=== PATIENT | female | born 1980 | race Caucasian/White ===

== ENCOUNTER 2018-04-27 18:43 | Inpatient (IN) ==
[2018-04-27 14:32] LABS: Amphetamine Screen,Urine Negative ng/mL (Cutoff=1000); Barbiturate Screen,Urine Negative ng/mL (Cutoff=200); Benzodiazepines Screen,Urine Negative ng/mL (Cutoff=200); Cannabinoid Screen,Urine Negative ng/mL (Cutoff = 50); Cocaine Screen,Urine Negative ng/mL (Cutoff= 300); Opiate Screen,Urine Negative ng/mL (Cutoff=300); Phencyclidine Screen,Urine Negative ng/mL (Cutoff=25)
[2018-04-27 14:56] LABS: Bilirubin,Urine Negative (Negative); Blood,Urine Trace (Negative); Clarity,Urine Clear (Clear); Color,Urine Yellow (Yellow); Glucose,Urine (UA) Normal (Normal); Ketones,Urine 40 mg/dL (Negative); Leukocyte Esterase,Urine Negative (Negative); Nitrite,Urine Negative (Negative); Protein,Urine Negative (Neg-Trace); Specific Gravity,Urine 1.008 (1.010-1.025); Urobilinogen,Urine Normal (Normal)
[2018-04-27 15:00] LABS: Bacteria,Urine None Seen per hpf (None-Few); Hyaline Casts,Urine None Seen per lpf (None-Few); RBC,Urine 0-3 per hpf (0-3); Squamous Epithelial Cell,Urine Many per lpf (None-Few); WBC,Urine 0-3 per hpf (0-3)
--- NOTE | 2018-04-27 16:10 | OB/GYN Progress Note ---
Date of Encounter: 04/27/18 Time of Encounter: 16:04 - Assessment and Plan (1) 37 weeks gestation of Current Visit: Yes Status: Acute FHR 160 Catgory 1 Irregular ctxs per toco Urinalysis negative for UTI/dehydration Serial cervical exams Subjective - Subjective Interval history: at 37 weeks and 0 days gestation presents to labor and delivery with complaints rectal pressure, back ache, and nausea that started at 1300 today. Denies vaginal bleeding, loss of fluid, CLARKE, visual disturbance and epigastric pain. States has felt some mild contractions since she arrived. Ths has been complicated by Insulin dependent GDM, AMA, and proteinuria. She states her blood sugars have been WNL. Reports good movement. Antepartum ROS: new complaints, movement normal Objective - Vital Signs Vital Signs: Intake and Output 04/27/18 04/27/18 04/27/18 07:59 15:59 23:59 Other: Weight 120.656 kg Patient Weight 04/27/18 23:59 Weight 120.656 kg - Exam FHR: category 1 FHR comments: FHR 160 Category 1 Auscultation: bilateral: normal Abdomen: Present: normal appearance, soft, gravid. Absent: tenderness Uterus: Present: normal. Absent: tenderness Cervical dilation: 4 Cervix effacement: 50 station: -3 Comments: VE per RN - Labs Labs: Abnormal lab results Ur Specific [place] 1.008 (1.010-1.025) L 04/27/18 14:38 Urine Ketones 40 mg/dL (Negative) H 04/27/18 14:38 Urine Blood Trace (Negative) H 04/27/18 14:38 Ur Squamous Epith Cells Many per lpf (None-Few) H 04/27/18 14:38
[~2018-04-27 18:43] MED LIST: *HR* Dextrose 50 % in Water (Syg) 50 ML SYRINGE IVP PRN; *HR* Nalbuphine 10 MG/ML AMPUL IVP PRN; D5% in Water 1,000 ML IVC PRN; Dextrose Gel 15 GM/37.5 ML TUBE PO PRN; Famotidine 20 MG/2 ML VIAL IVP PRN; Naloxone 0.4 MG/ML INJ IVP PRN; Ondansetron 4 MG/2 ML VIAL IVP PRN; Penicillin G Potassium 5,000,000 UNIT in 0.9 % Sodium Chloride Mini Bag 100 ML IVPB ONE
[2018-04-27] MEDS ORDERED: D5% in Lactated Ringers 1,000 ML IVC SCH (18:45)
[2018-04-27] MEDS ORDERED: 0.9 % Sodium Chloride 1,000 ML ONE (18:47)
[2018-04-27 18:53] LABS: Eosinophils % 0.1 %
[2018-04-27 18:55] LABS: Basophils % 0.2 %; Hematocrit 32.2 % (35.3-44.9); Immature Granulocytes % 0.4 % (0-4); Immature Platelets 1.9 % (1.1-6.1); Lymphocytes # 0.5 K/mcL (0.6-4.6); Lymphocytes % 4.1 %; Mean Corpuscular HGB Conc 34.2 g/dL (31.6-35.5); Mean Corpuscular Hemoglobin 28.9 pg (28.0-33.3); Mean Corpuscular Volume 84.7 fL (83.0-100.0); Mean Platelet Volume 9.5 fL (9.4-12.4); Monocytes # 0.7 K/mcL (0.0-1.3); Monocytes % 6.4 %; Red Cell Distribution Width 13.3 % (11.5-14.5); Segmented Neutrophils % 88.8 %
[2018-04-27 18:56] LABS: Platelet Count 92 K/mcL (140-400)
[2018-04-27] MEDS ORDERED: D5% in 0.45% NACL 1,000 ML IVC SCH (19:00)
--- NOTE | 2018-04-27 19:06 | OB/GYN History & Physical ---
Date of Encounter: 04/27/18 Time of Encounter: 19:03 Assessment and Plan (1) 37 weeks gestation of Current visit: Yes Status: Acute Admit to Labor and delivery for cervical change and intermittent tachycardia GBS positive Insulin dependent GDM Nubain/Epidural per patient request Anticipate POC per consult Dr. Whittaker (2) Gestational diabetes Current visit: Yes Status: Acute Qualifiers: Gestational diabetes mellitus control: insulin-controlled Trimester: third trimester Qualified Code(s): O24.414 - Gestational diabetes mellitus in , insulin controlled (3) tachycardia Current visit: Yes Status: Acute History of Present Illness HPI: at 37 weeks and 0 days gestation presents to triage with complaints rectal pressure, back ache, and nausea that started at 1300 today. Denies vaginal bleeding, loss of fluid, CLARKE, visual disturbance and epigastric pain. States has felt some mild contractions since she arrived. Reports good movement. This has been complicated by Insulin dependent GDM, AMA, and proteinuria. She states her blood sugars have been WNL. First complicated by Pre eclampsia. Pregnancies #2 through #8 were full term, uncomplicated . PMH and unremarkable. While in triage, she made cervical change and had intermittent episodes of tachycardia. Discussed with Dr. Whittaker, decision made to admit for augmentation of labor. POC discussed with patient, she is agreeable to POC. Labs: AB positive GBS positive Hep B negative RPR non reactive Rubella immune Past Med Surg Social Fam HX - Past Medical History Medical history: DVT Additional medical history: PT IS 29 WEEKS PREG, HERE FOR POSSIBLE BLOOD CLOT Psychiatric history: no psych history - Past Surgical History Surgical History: no surgical history - Social History Smoking Status: Never smoker Smokeless Tobacco Status: No Alcohol use: none Drug use: none - Family History Mother Living Status: Still Living Hx Family Cardiac Disorders: Yes Hx Family Respiratory Disorders: No Hx Family Cancer: Yes Hx Family GI Disorders: No Hx Family Genitourinary Disorders: No Hx Family Endocrine Disorder: No Hx Family Musculoskeletal Disorders: No Hx Family Neuromuscular Disorders: No Hx Family Neurologic Disorders: No Hx Family HEENT Disorders: No Hx Family Autoimmune Disorders: No Hx Family Reproductive Disorders: No Hx Family Psychosocial Disorders: No Hx Family Medical Disorders: No Obstetrical History - Pregnancies : 10 Para: 9 Term: 9 : 0 Ab's: 0 Livin - History/Complications History/Complications: First complicated by Pre eclampsia. Current complicated with Insulin dependent GDM. Pregnancies 32-38 fullterm, uncomplicated . Medications and Allergies Insulin LISPRO [Humalog] 30 unit SQ DAILY 04/27/18 [History] 3 Allergy/AdvReac Type Severity Reaction Status Date / Time No Known Allergies Allergy Verified 04/27/18 13:48 Exam - Constitutional Constitutional: well developed, well nourished, no acute distress - HEENT HEENT: Normocephaly, Mucus Membranes Moist - Neck Neck exam: full ROM - Lungs Respiratory exam: CTAB - Cardiovascular Cardiovascular exam: RRR - Abdomen Abdomen: Present: bowel sounds normal - Extremities Extremities exam: full ROM, normal inspection, pedal edema, radial pulses palpable and symmetrical Deep Tendon Reflex Grade: 2+ Normal - Vulva Vulva: bilateral: normal - Vagina Vagina: Present: normal moisture - Cervix Dilation: 4 Effacement: 60 Station: -2 - Uterus Uterus exam: Present: normal size, normal contour Results Result Diagrams: 04/27/18 18:43 Abnormal lab results WBC 11.2 K/mcL (4.3-11.1) H 04/27/18 18:43 RBC 3.80 M/mcL (3.82-4.97) L 04/27/18 18:43 Hgb 11.0 g/dL (11.5-15.4) L 04/27/18 18:43 Hct 32.2 % (35.3-44.9) L 04/27/18 18:43 Plt Count 92 K/mcL (140-400) L 04/27/18 18:43 Neutrophils # 10.0 K/mcL (1.6-8.9) H 04/27/18 18:43 Lymphocytes # 0.5 K/mcL (0.6-4.6) L 04/27/18 18:43 Ur Specific [place] 1.008 (1.010-1.025) L 04/27/18 14:38 Urine Ketones 40 mg/dL (Negative) H 04/27/18 14:38 Urine Blood Trace (Negative) H 04/27/18 14:38 Ur Squamous Epith Cells Many per lpf (None-Few) H 04/27/18 14:38 All other labs normal. - VTE Reasons for not Prescribing Prophylaxis: Treatment not Indicated - Low risk for VTE
[2018-04-27] MEDS ORDERED: Acetaminophen 325 MG TABLET PO PRN (19:49)
[2018-04-27] MEDS: Insulin LISPRO 300 UNITS/3 ML VIAL SQ SCH ×2 (20:05→22:13)
[2018-04-27 21:08] LABS: Alanine Aminotransferase 15 Units/L (7-52); Aspartate Amino Transferase 14 Units/L (13-39); BUN/Creatinine Ratio 13 (6-26); Blood Urea Nitrogen 6 mg/dL (6-20); Lactate Dehydrogenase 192 Units/L (140-271); Uric Acid 5.7 mg/dL (2.3-7.6); eGFR For African Americans > 60 (> 60); eGFR For Non-African Americans > 60 (> 60)
--- NOTE | 2018-04-27 22:45 | Discharge Summary ---
Date of Encounter: 04/27/18 Time of Encounter: 22:48 - Discharge Diagnosis (1) 37 weeks gestation of Priority: Secondary Status: Acute (2) Gestational diabetes Priority: Secondary Status: Acute Comments: Glucose well controlled on NPH 30 units at bedtime prior to admission. Following admission pt was started on sliding scale insulin with D5/ 0.45 for maintenance IV per Dr. Whittaker. Qualifiers: Gestational diabetes mellitus control: insulin-controlled Trimester: third trimester Qualified Code(s): O24.414 - Gestational diabetes mellitus in , insulin controlled (3) tachycardia Priority: Secondary (tachycardia) Status: Acute Comments: Intermittent tachycardia noted (4) Tachycardia Priority: Primary Status: Acute Comments: Pulse ranging from 115-145BPM. When it reached 145 with pt at rest EKG ordered. EKG shows sinus tachycardia with possible ST depression. Troponin 0.09. Pt reports significant shortness of breath and chest pain a few weeks ago that was intermittent for several days but spontaneously resolved prior to her scheduled echocardiogram. She opted not to have the echo since her symptoms had resolved. Following the EKG this evening pt admits to intermittent shortness of breath since arrival to L&D. She denies chest pain at this time. Decision made to transfer to [facility] since maternal telemetry monitoring is not available in labor and delivery at our facility. Pt agreeable to go to [facility] but has refused ambulance transport due to cost. She has a retail personal banker that will take to directly from [place] to [facility]. Risks discussed. (5) Shortness of breath during Priority: Secondary Status: Acute - Discharge Medications Home Medications: Insulin LISPRO [Humalog] 30 unit SQ DAILY 04/27/18 [History] Allergies/Adverse Reactions: 3 Allergy/AdvReac Type Severity Reaction Status Date / Time No Known Allergies Allergy Verified 04/27/18 13:48 Data Procedures and tests throughout hospitalization: Laboratory Tests 04/27/18 04/27/18 04/27/18 13:54 14:38 15:44 WBC RBC Hgb Hct MCV MCH MCHC RDW Plt Count MPV Immature Gran % Seg Neutrophils % Lymphocytes % Monocytes % Eosinophils % Basophils % Neutrophils # Lymphocytes # Monocytes # Eosinophils # Basophils # Immature Plt Fraction BUN Creatinine Est GFR ( Amer) Est GFR (Non-Af Amer) BUN/Creatinine Ratio POC Glucose 96 Uric Acid AST ALT Lactate Dehydrogenase Troponin I Urine Color Yellow Urine Clarity Clear Urine pH 7.0 Ur Specific [place] 1.008 L Urine Protein Negative Urine Glucose (UA) Normal Urine Ketones 40 H Urine Blood Trace H Urine Nitrite Negative Urine Bilirubin Negative Urine Urobilinogen Normal Ur Leukocyte Esterase Negative Urine Microscopic RBC 0-3 Urine Microscopic WBC 0-3 Ur Squamous Epith Cells Many H Urine Bacteria None Seen Hyaline Casts None Seen Ur Culture Indicated? NO Urine Opiates Screen Negative Ur Barbiturates Screen Negative Ur Phencyclidine Scrn Negative Ur Amphetamines Screen Negative U Benzodiazepines Scrn Negative Urine Cocaine Screen Negative U Marijuana (THC) Screen Negative Ur Drug Screen Interp See Below 04/27/18 04/27/18 04/27/18 18:43 20:05 20:35 WBC 11.2 H RBC 3.80 L Hgb 11.0 L Hct 32.2 L MCV 84.7 MCH 28.9 MCHC 34.2 RDW 13.3 Plt Count 92 L MPV 9.5 Immature Gran % 0.4 Seg Neutrophils % 88.8 Lymphocytes % 4.1 Monocytes % 6.4 Eosinophils % 0.1 Basophils % 0.2 Neutrophils # 10.0 H Lymphocytes # 0.5 L Monocytes # 0.7 Eosinophils # 0.0 Basophils # 0.0 Immature Plt Fraction 1.9 BUN 6 Creatinine 0.46 L Est GFR ( Amer) > 60 Est GFR (Non-Af Amer) > 60 BUN/Creatinine Ratio 13 POC Glucose 133 H Uric Acid 5.7 AST 14 ALT 15 Lactate Dehydrogenase 192 Troponin I 0.09 H* Urine Color Urine Clarity Urine pH Ur Specific [place] Urine Protein Urine Glucose (UA) Urine Ketones Urine Blood Urine Nitrite Urine Bilirubin Urine Urobilinogen Ur Leukocyte Esterase Urine Microscopic RBC Urine Microscopic WBC Ur Squamous Epith Cells Urine Bacteria Hyaline Casts Ur Culture Indicated? Urine Opiates Screen Ur Barbiturates Screen Ur Phencyclidine Scrn Ur Amphetamines Screen U Benzodiazepines Scrn Urine Cocaine Screen U Marijuana (THC) Screen Ur Drug Screen Interp 04/27/18 04/27/18 21:25 22:13 WBC RBC Hgb Hct MCV MCH MCHC RDW Plt Count MPV Immature Gran % Seg Neutrophils % Lymphocytes % Monocytes % Eosinophils % Basophils % Neutrophils # Lymphocytes # Monocytes # Eosinophils # Basophils # Immature Plt Fraction BUN Creatinine Est GFR ( Amer) Est GFR (Non-Af Amer) BUN/Creatinine Ratio POC Glucose 118 H Uric Acid AST ALT Lactate Dehydrogenase Troponin I < 0.03 Urine Color Urine Clarity Urine pH Ur Specific [place] Urine Protein Urine Glucose (UA) Urine Ketones Urine Blood Urine Nitrite Urine Bilirubin Urine Urobilinogen Ur Leukocyte Esterase Urine Microscopic RBC Urine Microscopic WBC Ur Squamous Epith Cells Urine Bacteria Hyaline Casts Ur Culture Indicated? Urine Opiates Screen Ur Barbiturates Screen Ur Phencyclidine Scrn Ur Amphetamines Screen U Benzodiazepines Scrn Urine Cocaine Screen U Marijuana (THC) Screen Ur Drug Screen Interp Labs on day of discharge: Labs from last 24 hours 04/27/18 04/27/18 04/27/18 22:13 21:25 20:35 WBC RBC Hgb Hct MCV MCH MCHC RDW Plt Count MPV Immature Gran % Seg Neutrophils % Lymphocytes % Monocytes % Eosinophils % Basophils % Neutrophils # Lymphocytes # Monocytes # Eosinophils # Basophils # Immature Plt Fraction BUN 6 Creatinine 0.46 L Est GFR ( Amer) > 60 Est GFR (Non-Af Amer) > 60 BUN/Creatinine Ratio 13 POC Glucose 118 H Uric Acid 5.7 AST 14 ALT 15 Lactate Dehydrogenase 192 Troponin I < 0.03 0.09 H* Urine Color Urine Clarity Urine pH Ur Specific [place] Urine Protein Urine Glucose (UA) Urine Ketones Urine Blood Urine Nitrite Urine Bilirubin Urine Urobilinogen Ur Leukocyte Esterase Urine Microscopic RBC Urine Microscopic WBC Ur Squamous Epith Cells Urine Bacteria Hyaline Casts Ur Culture Indicated? Urine Opiates Screen Ur Barbiturates Screen Ur Phencyclidine Scrn Ur Amphetamines Screen U Benzodiazepines Scrn Urine Cocaine Screen U Marijuana (THC) Screen Ur Drug Screen Interp 04/27/18 04/27/18 04/27/18 20:05 18:43 15:44 WBC 11.2 H RBC 3.80 L Hgb 11.0 L Hct 32.2 L MCV 84.7 MCH 28.9 MCHC 34.2 RDW 13.3 Plt Count 92 L MPV 9.5 Immature Gran % 0.4 Seg Neutrophils % 88.8 Lymphocytes % 4.1 Monocytes % 6.4 Eosinophils % 0.1 Basophils % 0.2 Neutrophils # 10.0 H Lymphocytes # 0.5 L Monocytes # 0.7 Eosinophils # 0.0 Basophils # 0.0 Immature Plt Fraction 1.9 BUN Creatinine Est GFR ( Amer) Est GFR (Non-Af Amer) BUN/Creatinine Ratio POC Glucose 133 H 96 Uric Acid AST ALT Lactate Dehydrogenase Troponin I Urine Color Urine Clarity Urine pH Ur Specific [place] Urine Protein Urine Glucose (UA) Urine Ketones Urine Blood Urine Nitrite Urine Bilirubin Urine Urobilinogen Ur Leukocyte Esterase Urine Microscopic RBC Urine Microscopic WBC Ur Squamous Epith Cells Urine Bacteria Hyaline Casts Ur Culture Indicated? Urine Opiates Screen Ur Barbiturates Screen Ur Phencyclidine Scrn Ur Amphetamines Screen U Benzodiazepines Scrn Urine Cocaine Screen U Marijuana (THC) Screen Ur Drug Screen Interp 04/27/18 04/27/18 14:38 13:54 WBC RBC Hgb Hct MCV MCH MCHC RDW Plt Count MPV Immature Gran % Seg Neutrophils % Lymphocytes % Monocytes % Eosinophils % Basophils % Neutrophils # Lymphocytes # Monocytes # Eosinophils # Basophils # Immature Plt Fraction BUN Creatinine Est GFR ( Amer) Est GFR (Non-Af Amer) BUN/Creatinine Ratio POC Glucose Uric Acid AST ALT Lactate Dehydrogenase Troponin I Urine Color Yellow Urine Clarity Clear Urine pH 7.0 Ur Specific [place] 1.008 L Urine Protein Negative Urine Glucose (UA) Normal Urine Ketones 40 H Urine Blood Trace H Urine Nitrite Negative Urine Bilirubin Negative Urine Urobilinogen Normal Ur Leukocyte Esterase Negative Urine Microscopic RBC 0-3 Urine Microscopic WBC 0-3 Ur Squamous Epith Cells Many H Urine Bacteria None Seen Hyaline Casts None Seen Ur Culture Indicated? NO Urine Opiates Screen Negative Ur Barbiturates Screen Negative Ur Phencyclidine Scrn Negative Ur Amphetamines Screen Negative U Benzodiazepines Scrn Negative Urine Cocaine Screen Negative U Marijuana (THC) Screen Negative Ur Drug Screen Interp See Below Date of admission: 04/27/18 18:43 Primary care physician: PCP NONE Discharging clinician: Gail Reaves ([place]) Anticipated date of discharge: 04/27/18 (To [facility] L[facility]) - Patient Status Disposition: Transfer Short-Term Hosp Condition: Fair Functional capacity at discharge: independent ambulation - Discharge Instructions Follow Up With: NONE,PCP [Primary Care Provider] - Kasia Pérez DO [Partnered Physician] - Hospital Course CHIEF SOLUTION ARCHITECT Reason for admission: other (contractions, ACD at 37 weeks in grand multipara) Hospital course: 38 year-old presenting at 37w0d with initial complaint of pelvic pressure. Pt was found to be having contractions and progressed a small amount from 4cm/-3 station to 4-5cm/ -1 station. She was scheduled for IOL on 04/28 due to GDM controlled with insulin, grand multiparity, proteinuria, and AMA status. Materal tachycardia in the 115-120 BPM range with intermittent tachycardia also noted. Per consultation with Dr. Whittaker decision made to admit for delivery. Pt received PCN for GBS ppx and the plan was to AROM to augment labor once it was time for second dose. Maternal heart rate nereyda spontaneously to 140's with pt at rest and EKG was ordered. EKG with sinus tachycardia and possible ST depression as well as elevated troponin then discovered. At this time pt admits to having intermittent shortness of breath since arrival. POC discussed again with Dr. Whittaker and Dr. Almonte and decision made to transfer to [facility] for further evaluation given the need for telemetry monitoring. Pt refused transfer by ambulance but agreed to have hired fire truck driver take her straight from [place] to [facility]. Time Attestation: Total time spent providing and/or coordinating discharge services: Exam - Constitutional General appearance IM: A&O X 3, pleasant, no acute distress - Respiratory Respiratory exam: Present: CTAB - Cardiovascular Cardiovascular exam IM: Present: +S1, +S2, tachycardia - GI/Abdominal GI/Abdominal exam IM: soft - Extremities Exam Extremities exam IM: Present: normal inspection, pedal edema (mild bilaterally) - Neurological Exam Neurological exam: normal gait, oriented X3 - Other Additional findings: reflexes normal, no clonus FHT baseline 155-160, 15x15 accels, moderate variability toco: rare contractions - VTE Reasons for not Prescribing Prophylaxis: Treatment not Indicated - Low risk for VTE
[2018-04-27] MEDS ORDERED: Penicillin G Potassium 2,500,000 UNIT in 0.9 % Sodium Chloride 100 ML IVPB SCH (23:00)
[2018-04-27 23:40] LABS: Troponin I 0.09 ng/mL (< 0.04)
--- NOTE | 2018-04-28 07:18 | Electrocardiograph Report ---
[address] [place], [place] [address] Test Date: 2018-04-27 Pat Name: Meron Watters Department: 101 Room: [facility] Gender: F Medical Accounting Clerk: SCOTT : 1980 Requested By: [id number] Order Number: [id number] Reading MD: Ruben Jarquin Measurements Intervals [place] Rate: 115 P: 54 [place]: 135 QRS: 42 QRSD: 97 T: -1 QT: 309 QTc: 377 Interpretive Statements SINUS TACHYCARDIA Electronically Signed On 04-28-2018 7:16:29 EDT by Ruben Jarquin
== END 2018-04-27 23:16 | disposition short-term general hospital (02) | DRG 781 ==
LOC: 1NENULAB
PROVIDERS: ADMIT Registered Nurse; ATTEND Obstetrics & Gynecology

== ENCOUNTER 2018-04-28 10:00 | Inpatient (IN) ==
[2018-04-28] MEDS ORDERED: Naloxone 0.4 MG/ML INJ IVP PRN (18:27)
[2018-04-28] MEDS ORDERED: Famotidine 20 MG/2 ML VIAL IVP PRN (18:27)
[2018-04-28] MEDS ORDERED: Ondansetron 4 MG/2 ML VIAL IVP PRN (18:27)
[2018-04-28] MEDS ORDERED: *HR* Nalbuphine 10 MG/ML AMPUL IVP PRN (18:27)
[2018-04-28] MEDS ORDERED: Penicillin G Potassium 5,000,000 UNIT in 0.9 % Sodium Chloride Mini Bag 100 ML IVPB ONE ×2 (18:30→18:45)
[2018-04-28] MEDS ORDERED: Oxytocin 20 units/ LR 1000 mL 20 UNIT/1,000 ML BAG IVC SCH (18:30)
[2018-04-28] MEDS ORDERED: 0.9 % Sodium Chloride 1,000 ML IVC SCH (18:30)
[2018-04-28] MEDS: Penicillin G Potassium 2,500,000 UNIT in 0.9 % Sodium Chloride 100 ML IVPB SCH ×2 (18:52→23:22)
[2018-04-28 20:20] LABS: Eosinophils % 0.6 %; Immature Granulocytes % 1.4 % (0-4); Segmented Neutrophils % 75.3 %
[2018-04-28 20:22] LABS: Basophils % 0.2 %; Hematocrit 30.8 % (35.3-44.9); Hemoglobin 10.5 g/dL (11.5-15.4); Immature Platelets 1.7 % (1.1-6.1); Lymphocytes # 0.7 K/mcL (0.6-4.6); Lymphocytes % 14.2 %; Mean Corpuscular HGB Conc 34.1 g/dL (31.6-35.5); Mean Corpuscular Hemoglobin 29.2 pg (28.0-33.3); Mean Corpuscular Volume 85.8 fL (83.0-100.0); Mean Platelet Volume 9.7 fL (9.4-12.4); Monocytes # 0.4 K/mcL (0.0-1.3); Monocytes % 8.3 %; Neutrophils # 3.9 K/mcL (1.6-8.9); Red Blood Count 3.59 M/mcL (3.82-4.97); Red Cell Distribution Width 13.7 % (11.5-14.5)
[2018-04-28 20:30] LABS: Platelet Count 93 K/mcL (140-400)
--- NOTE | 2018-04-28 20:32 | OB/GYN History & Physical ---
Date of Encounter: 04/28/18 Time of Encounter: 18:30 Assessment and Plan (1) Proteinuria affecting in third trimester Current visit: Yes Status: Acute Recommendation from [facility] M[facility] to deliver due to severe proteinuria at term. (2) Grand multiparity Current visit: Yes Status: Acute Actually she is a [id number] (3) 37 weeks gestation of Current visit: No Status: Acute (4) Gestational diabetes Current visit: No Status: Acute Accucheck on admission was 127. We will continue to monitor q 2 hours. She did not get her insulin last night, and other than her fasting blood sugars she has been well controlled. She is placed on 0.9 NS as maintenance IV and we will change if she becomes hypoglycemic although I do not anticipate this for her. Qualifiers: Gestational diabetes mellitus control: insulin-controlled Trimester: third trimester Qualified Code(s): O24.414 - Gestational diabetes mellitus in , insulin controlled (5) Tachycardia Current visit: No Status: Acute She had PE workup and cardiac workup at [facility] today. Report from Dr. Gross was everything was normal and they would fax us reports. OK to deliver here today. History of Present Illness Chief complaint: induction of labor HPI: Ms. Watters is a 38 year old female G 10 p 9-0-0-9 at 37 1/7 weeks presents to labor and delivery for induction of labor due to proteinuria. She initially presented to my practice at 28 weeks from an outside inspector [employer] slugs after diagnosing gestational diabetes and new onset of proteinuria. She has been followed closely by [facility] as well. She received weekly labs and was instructed to deliver at 37 weeks unless an abnormality showed up in the labs sooner. She presented her last evening with pelvic pressure. She also had complaints of shortness of breath and was sent to [facility] for further evaluation. She had CT PE and cardiac echo which were both normal. She was felt stable to be returned to [place] for her scheduled induction of labor. [place] reports her shortness of breath has resolved. She denies any labor symptoms currently. She states she did not receive her insulin last night and admits she splurged on her way here and had a piece of apple pie. She has done well with her Metformin and NPH and finally reached a dose that did control her fasting blood glucose. Past Med Surg Social Fam HX - Past Medical History Source: patient Medical history: diabetes (gestational) Psychiatric history: no psych history - Past Surgical History Surgical History: no surgical history - Social History Smoking Status: Never smoker Smokeless Tobacco Status: No Alcohol use: none Drug use: none Current living situation: Home - Independent Activity Level: Independent ambulation - Family History Mother Age: 66 Living Status: Still Living Hx Family Cardiac Disorders: Yes Hx Family Respiratory Disorders: No Hx Family Cancer: Yes Hx Family GI Disorders: No Hx Family Endocrine Disorder: No Hx Family Neuromuscular Disorders: No Hx Family Neurologic Disorders: No Hx Family HEENT Disorders: No Hx Family Autoimmune Disorders: No Obstetrical History - Pregnancies : 10 Para: 9 Term: 9 : 0 Ab's: 0 Livin - History/Complications History/Complications: toxemia Medications and Allergies Insulin LISPRO [Humalog] 30 unit SQ DAILY 04/27/18 [History] 3 Allergy/AdvReac Type Severity Reaction Status Date / Time No Known Allergies Allergy Verified 04/27/18 13:48 Review of System OB All systems PM: reviewed and no additional remarkable complaints except as stated - Constitutional Constitutional ROS IM: fatigue, no chills, no fever(s) - Cardiovascular Cardiovascular: as per HPI Exam - Constitutional Constitutional: well developed, well nourished, no acute distress, average body habitus - HEENT HEENT: EOMI - Neck Neck exam: full ROM - Lungs Respiratory exam: CTAB - Cardiovascular Cardiovascular exam: tachycardia (regular rhythm) - Abdomen Abdomen: Present: bowel sounds normal, gravid, non tender - Cervix Dilation: 5 (per previous CNM exam) Results Abnormal lab results POC Glucose 125 mg/dL (70-99) H 04/28/18 18:38 All other labs normal. - VTE Reasons for not Prescribing Prophylaxis: Treatment not Indicated - Low risk for VTE
[2018-04-28 20:39] LABS: Amphetamine Screen,Urine Negative ng/mL (Cutoff=1000); Barbiturate Screen,Urine Negative ng/mL (Cutoff=200); Benzodiazepines Screen,Urine Negative ng/mL (Cutoff=200); Cannabinoid Screen,Urine Negative ng/mL (Cutoff = 50); Cocaine Screen,Urine Negative ng/mL (Cutoff= 300); Opiate Screen,Urine Negative ng/mL (Cutoff=300); Phencyclidine Screen,Urine Negative ng/mL (Cutoff=25)
[2018-04-28] MEDS ORDERED: Acetaminophen 325 MG TABLET PO ONE (21:23)
--- NOTE | 2018-04-28 23:32 | OB Labor Progress Note ---
Date of Encounter: 04/28/18 Time of Encounter: 23:28 Labor Progress Note - Subjective Subjective: Pt comfortable at this time - Cervix Cervix: 5/50/-2 - Heart Tones Heart Tones: 140/moderate/+accels/-decels - [place]: no contractions noted - Interventions Interventions: AROM for small amount of clear fluid - Plan Plan: Expectant management at this time If no labor in 6 hours will start pitocin unless patient wants it started earlier q2 glucose checks frequent repositioning nubain and epidural as desires anticipate
[2018-04-29] MEDS: Penicillin G Potassium 2,500,000 UNIT in 0.9 % Sodium Chloride 100 ML IVPB SCH ×4 (03:19→16:00)
--- NOTE | 2018-04-29 11:15 | OB Labor Progress Note ---
Date of Encounter: 04/29/18 Time of Encounter: 11:13 Labor Progress Note - Subjective Subjective: Patient sitting in chair, doing well. Patient denies any pain at this time. - Heart Tones Heart Tones: patient currently off the monitor at this time for repositioning. - [place]: 2-4 min apart - Interventions Interventions: Discussed POC with patient. Patient denies any questions or concerns. - Plan Plan: Continue labor management. anticipate
--- NOTE | 2018-04-29 13:42 | OB Labor Progress Note ---
Date of Encounter: 04/29/18 Time of Encounter: 13:39 Labor Progress Note - Subjective Subjective: Patient sitting in bed. Patient asking to be checked. - Cervix Cervix: 5.5/90/-1 - Heart Tones Heart Tones: 125 bpm moderate amount of variability +15x15 accels no decels noted. Cat. 1 tracing. - [place]: 2-2.5 min apart - Interventions Interventions: SVE, discussed POC - Plan Plan: Continue labor management.
[2018-04-29] MEDS ORDERED: Ibuprofen 600 MG TABLET PO PRN ×2 (18:21→20:55)
--- NOTE | 2018-04-29 18:45 | OB/GYN Procedure Note ---
Delivery - Delivery Date: 04/29/18 Provider: Holly Domingo Intrapartum events: none Delivery induction: AROM, oxytocin Delivery monitor: external FHT, external uterine Anesthesia: none Quantitated Blood Loss: 200 - (s) A Delivery Date: 04/29/18 Delivery Time: 18:12 Presentation: vertex Position: RENEE Route of delivery: Gender: Male Viability: Viable Pounds: 7 Ounces: 7 Weight Gram: 3370 kg at 1 minute: 8 at 5 mins: 8 Shoulder Dystocia: not encountered Placenta: spontaneous, uterine exploration Cord: 3 umbilical vessels - Repair Episiotomy: none Laceration Description: None - Complications Delivery complications: uterine atony (resolved uterine massage and pitocin ) - Disposition Mom disposition: stable in LDR disposition: stable in LDR - Comments Comments: Called to LDR patient feeling the urge to push. Patient progressed to complete and under maternal effort patient spontaneously delivered a viable male over an intact perineum. No nuchal cord, shoulder dystocia or meconium was encountered. Infant was placed on maternal abdomen. Cord was clamped and cut after pulsations ceased. Placenta delivered spontaneously and intact. Uterus was explored. Pericare provided. All counts correct. Both mother and infant stable in LDR for 2 hour recovery.
[2018-04-29] MEDS ORDERED: *HR* HYDROcodone/Acet 5/325 mg TABLET PO PRN (20:55)
[2018-04-29] MEDS ORDERED: Oxytocin 20 units/ LR 1000 mL 20 UNIT/1,000 ML BAG IVC SCH (20:55)
[2018-04-29] MEDS ORDERED: Acetaminophen 325 MG TABLET PO PRN (20:55)
[2018-04-29] MEDS ORDERED: Measles/Mumps/Rubella Vacc 0.5 ML VIAL SQ PRN (20:55)
[2018-04-30 08:32] VITALS: BP 105/71
[2018-04-30] MEDS ORDERED: Prenatal Vit/FA 1 EACH TABLET PO SCH (09:00)
--- NOTE | 2018-04-30 09:49 | Discharge Summary ---
Date of Encounter: 04/30/18 Time of Encounter: 09:47 - Discharge Diagnosis (1) Vaginal delivery Priority: Primary Status: Acute Comments: Stable PPD#1, Pain well managed, bleeding minimal, , desires discharge. - Discharge Medications Home Medications: Acetaminophen [Tylenol] 650 mg PO Q6HR PRN tablet 04/30/18 [Rx] Docusate [Colace] 100 mg PO BID capsule 04/30/18 [Rx] Ibuprofen [Motrin] 600 mg PO Q6HR PRN tablet 04/30/18 [Rx] Vit/FA 1 each PO DAILY tablet 04/30/18 [Rx] Allergies/Adverse Reactions: 3 Allergy/AdvReac Type Severity Reaction Status Date / Time No Known Allergies Allergy Verified 04/27/18 13:48 Data Procedures and tests throughout hospitalization: Laboratory Tests 04/28/18 04/28/18 04/28/18 17:45 18:38 19:49 WBC 5.2 D RBC 3.59 L Hgb 10.5 L Hct 30.8 L MCV 85.8 MCH 29.2 MCHC 34.1 RDW 13.7 Plt Count 93 L MPV 9.7 Immature Gran % 1.4 Seg Neutrophils % 75.3 Lymphocytes % 14.2 Monocytes % 8.3 Eosinophils % 0.6 Basophils % 0.2 Neutrophils # 3.9 Lymphocytes # 0.7 Monocytes # 0.4 Eosinophils # 0.0 Basophils # 0.0 Immature Plt Fraction 1.7 POC Glucose 125 H Urine Opiates Screen Negative Ur Barbiturates Screen Negative Ur Phencyclidine Scrn Negative Ur Amphetamines Screen Negative U Benzodiazepines Scrn Negative Urine Cocaine Screen Negative U Marijuana (THC) Screen Negative Ur Drug Screen Interp See Below 04/28/18 04/29/18 04/29/18 23:21 01:29 03:19 WBC RBC Hgb Hct MCV MCH MCHC RDW Plt Count MPV Immature Gran % Seg Neutrophils % Lymphocytes % Monocytes % Eosinophils % Basophils % Neutrophils # Lymphocytes # Monocytes # Eosinophils # Basophils # Immature Plt Fraction POC Glucose 108 H 106 H 115 H Urine Opiates Screen Ur Barbiturates Screen Ur Phencyclidine Scrn Ur Amphetamines Screen U Benzodiazepines Scrn Urine Cocaine Screen U Marijuana (THC) Screen Ur Drug Screen Interp 04/29/18 04/29/18 04/29/18 05:26 11:57 14:42 WBC RBC Hgb Hct MCV MCH MCHC RDW Plt Count MPV Immature Gran % Seg Neutrophils % Lymphocytes % Monocytes % Eosinophils % Basophils % Neutrophils # Lymphocytes # Monocytes # Eosinophils # Basophils # Immature Plt Fraction POC Glucose 114 H 100 H 103 H Urine Opiates Screen Ur Barbiturates Screen Ur Phencyclidine Scrn Ur Amphetamines Screen U Benzodiazepines Scrn Urine Cocaine Screen U Marijuana (THC) Screen Ur Drug Screen Interp 04/29/18 04/29/18 04/30/18 16:38 19:11 06:15 WBC RBC Hgb Hct MCV MCH MCHC RDW Plt Count MPV Immature Gran % Seg Neutrophils % Lymphocytes % Monocytes % Eosinophils % Basophils % Neutrophils # Lymphocytes # Monocytes # Eosinophils # Basophils # Immature Plt Fraction POC Glucose 95 140 H 119 H Urine Opiates Screen Ur Barbiturates Screen Ur Phencyclidine Scrn Ur Amphetamines Screen U Benzodiazepines Scrn Urine Cocaine Screen U Marijuana (THC) Screen Ur Drug Screen Interp Labs on day of discharge: Labs from last 24 hours 04/30/18 04/29/18 04/29/18 06:15 19:11 16:38 POC Glucose 119 H 140 H 95 04/29/18 04/29/18 14:42 11:57 POC Glucose 103 H 100 H Date of admission: 04/28/18 17:16 Primary care physician: PCP NONE Consults: 04/29/18 20:55 Consult to Signal Operator Linguist [CONS] Routine Comment: Vaginal delivery, consult needed Discharging clinician: Aileen Taylor Anticipated date of discharge: 04/30/18 - Patient Status Disposition: Home, Self-Care Condition: Good Functional capacity at discharge: independent ambulation Overall status at discharge: patient is back to baseline - Discharge Instructions Follow Up With: NONE,PCP [Primary Care Provider] - Kasia Pérez DO [Partnered Physician] - - Diet and Activity Activity: resume usual activities as tolerated Diet: regular diet Hospital Course Reason for admission: active labor Delivery: Episiotomy: none Laceration: none Other procedures: none complications: none Discharge diagnosis: IUP at term delivered baby: male Hospital course: Delivery - Delivery Date: 04/29/18 Provider: Holly Domingo Intrapartum events: none Delivery induction: AROM, oxytocin Delivery monitor: external FHT, external uterine Anesthesia: none Quantitated Blood Loss: 200 - (s) A Delivery Date: 04/29/18 Infant Delivery Time: 18:12 Presentation: vertex Position: RENEE Route of delivery: Gender: Male Viability: Viable Pounds: 7 Ounces: 7 Weight Gram: 3370 kg at 1 minute: 8 at 5 mins: 8 Shoulder Dystocia: not encountered Placenta: spontaneous, uterine exploration Cord: 3 umbilical vessels - Repair Episiotomy: none Laceration Description: None - Complications Delivery complications: uterine atony (resolved uterine massage and pitocin ) - Disposition Mom disposition: stable in PP and appropriate for discharge Time Attestation: Total time spent providing and/or coordinating discharge services: Time Spent: Less than 30 minutes Exam - Constitutional Vitals: Temp Pulse Resp BP Pulse Ox 97.8 F 81 12 105/71 97 04/30/18 07:30 04/30/18 07:30 04/30/18 07:30 04/30/18 07:30 04/30/18 07:30 General appearance IM: A&O X 3 - Respiratory Respiratory exam: Present: CTAB - Cardiovascular Cardiovascular exam IM: Present: RRR - GI/Abdominal GI/Abdominal exam IM: soft - Uterine Tone: Firm Uterus Position: At Umbilicus - Extremities Exam Extremities exam IM: Present: normal capillary refill, pedal edema - Neurological Exam Neurological exam: normal gait, oriented X3 - Psychiatric Additional comments: reports good mood
== END 2018-04-30 14:15 | disposition home or self-care (01) | DRG 775 ==
LOC: 1NENULAB 17:16 → 1NENUOBS 04-29 20:51
PROVIDERS: ADMIT Advanced Practice Midwife; ATTEND Obstetrics & Gynecology